=== PATIENT | female | born 1985 | race Caucasian/White ===

== ENCOUNTER 2017-02-13 22:25 | Emergency (ER) | payer OTHER ==
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
--- NOTE | ~2017-02-13 | CR72 ---
[facility] A Service of [facility] & [facility] RADIOLOGY TEXT RESULTS PATIENT: LIV ALCAZAR LOCATION: [facility] : 85 UNIT #: [id number] AGE: [address]: Jacob Crump MD SEX: F ORDER DR: [id number] [facility] [address] [place], [place] [address] [id number] E MR#: [id number] Acc #: [id number] NAME: LIV ALCAZAR : 1985 SEX: F STUDY DATE/TIME: 02/14/2017 0:32 UNIT: SB ROOM: STUDY DESCRIPTION: CR Chest Single View Portable Attending Physician: Elias Crump M.D. Ordering Physician: Ed Doctor [id number] [facility] Primary Care Physician: [facility], [facility] MED[facility]AG[facility] REPORT This report is preliminary unless electronic signature is present EXAM Portable chest INDICATION Chest pain, shortness of air today. PROCEDURE Frontal view chest. COMPARISON 08/03/2015. FINDINGS Heart size normal. Lungs are clear. No pleural fluid or pneumothorax. IMPRESSION No active process. Dictated by... Elias Vincent M.D. THIS IS AN ELECTRONICALLY VERIFIED REPORT Elias Vincent M.D. at 02/14/2017 10:07 PM STEVIE/leo TD: 02/14/2017 07:14 JOB #: [id number] MEDICAL IMAGING REPORT Page 1 of 1 COPY
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
[~2017-02-13 22:25] MED LIST: PEN-VEE K PO; ULTRAM PO
== END 2017-02-14 02:27 | disposition home or self-care (01) ==
LOC: CED 22:25
DX: S83.92XA Sprain of unspecified site of left knee, initial encounter (principal); F17.290 Nicotine dependence, other tobacco product, uncomplicated; F31.9 Bipolar disorder, unspecified; V49.00XA Driver injured in collision with unspecified motor vehicles in nontraffic accident, initial encounter; Y92.410 Unspecified street and highway as the place of occurrence of the external cause
CPT/HCPCS: 29505; 70450; 71010; 72040; 73502; 73562; 73590; 96374; 96375; 96376; 99284; J2270; J2550